=== PATIENT | female | born 1985 | race Caucasian/White ===

== ENCOUNTER 2019-06-20 18:31 | Observation (INO) | payer OTHER ==
[~2019-06-20] VITALS: Ht 160 cm; Wt 97.5 kg
== END 2019-06-20 20:00 | disposition home or self-care (01) ==
LOC: MLD 18:31
PROVIDERS: ADMIT Obstetrics & Gynecology; ATTEND Obstetrics & Gynecology
DX: O26.893 Other specified pregnancy related conditions, third trimester (principal); R10.9 Unspecified abdominal pain; Z3A.28 28 weeks gestation of pregnancy
CPT/HCPCS: 81000; G0378

== ENCOUNTER 2019-08-24 19:36 | Inpatient (IN) | payer OTHER ==
[~2019-08-24] VITALS: Ht 157.5 cm; Wt 99.8 kg
[2019-08-24] MEDS ORDERED: PREN-380 PO (20:27)
[2019-08-24] MEDS ORDERED: OXYTOCIN 20 UNITS in LACTATED RINGERS 1,000 ML IV SCH (20:30)
[2019-08-24] MEDS ORDERED: PROMETHAZINE 25 MG/ML VIAL IVP SCH (21:00)
[2019-08-24] MEDS: LACTATED RINGERS 1,000 ML IV SCH (21:07)
[2019-08-24 21:17] LABS: BASOPHILS % (AUTO) 0.2 % (0.0-2.0); EOSINOPHILS % (AUTO) 0.4 % (0.0-4.0); HEMATOCRIT 34.6 % (36-48); HEMOGLOBIN 11.8 g/dL (12.0-16.0); LYMPHOCYTES # (AUTO) 2.4 K/uL (2.5-16.5); LYMPHOCYTES % (AUTO) 26.2 % (20.5-51.1); MEAN CORPUSCULAR HEMOGLOBIN 31 pg (27-31); MEAN CORPUSCULAR HGB CONC 34 g/dL (33-37); MEAN CORPUSCULAR VOLUME 89.7 fL (80-94); MONOCYTES # (AUTO) 0.7 K/uL (0.8-1.0); MONOCYTES % (AUTO) 7.4 % (1.7-9.3); NEUTROPHILS % (AUTO) 65.8 % (42.2-75.2); PLATELET COUNT (AUTO) 236 K/uL (140-450); RED BLOOD CELL COUNT(AUTO) 3.86 MIL/uL (4.20-5.40); RED CELL DISTRIBUTION WIDTH 12.7 % (11.6-13.7); WHITE BLOOD COUNT (AUTO) 9.1 K/uL (4.8-10.8)
[2019-08-24 21:22] LABS: BILIRUBIN,URINE NEGATIVE (NEGATIVE); BLOOD, URINE NEGATIVE (NEGATIVE); COLOR,URINE YELLOW (YELLOW); LEUKOCYTE ESTERASE ,URINE 3+ (NEGATIVE); NITRITE, URINE POSITIVE (NEGATIVE); PH,URINE 6.5 (5.0-9.0); UGLUCOSE NEGATIVE (NEGATIVE)
[2019-08-24 21:43] LABS: APPEARANCE,URINE BLOODY (CLEAR)
[2019-08-24 21:51] LABS: RBC,URINE 0-5 /HPF (0-5); WBC,URINE 20-60 /HPF (0-5)
[2019-08-24 22:08] LABS: ALBUMIN 2.4 g/dL (3.4-5.0); CARBON DIOXIDE 20.7 mmol/L (21-32); CREATININE 0.5 mg/dL (0.6-1.3); POTASSIUM 3.7 mmol/L (3.5-5.1); TOTAL BILIRUBIN 0.7 mg/dL (0.0-1.0)
[2019-08-24] MEDS ORDERED: cefTRIAXone 1,000 MG in LIDOCAINE MPF 1% 2.1 ML IM ONE (22:20)
[2019-08-24] MEDS ORDERED: cefTRIAXone 1,000 MG VIAL ONE (22:33)
[2019-08-24] MEDS ORDERED: LIDOCAINE 1% 500 MG/50 ML VIAL ONE (22:33)
[2019-08-24] MEDS ORDERED: OXYTOCIN 20 UNITS/LR PREMIX 1,000 ML IV ONE (22:44)
[2019-08-25 02:15] VITALS: BP 124/80
[2019-08-25] MEDS: LACTATED RINGERS 1,000 ML IV SCH (05:59)
--- NOTE | 2019-08-25 07:56 | NUR ---
PATIENT HAS BEEN SCREENED AND CATEGORIZED LOW NUTRITION RISK. PATIENT WILL BE SEEN WITHIN 7 DAYS OF ADMISSION. 08/31/[address]
[2019-08-25] MEDS ORDERED: NALBUPHINE 10 MG/ML AMP ONE ×2 (08:11→11:12)
[2019-08-25] MEDS ORDERED: PROMETHAZINE 25 MG/ML VIAL ONE ×2 (08:11→11:12)
[2019-08-25] MEDS: NALBUPHINE 10 MG/ML AMP IVP PRN ×2 (08:17→11:19)
[2019-08-25] MEDS ORDERED: PROMETHAZINE 25 MG/ML VIAL IVP PRN (11:20)
[2019-08-25] MEDS ORDERED: BUPIVACAINE 0.125%/NS PREMIX 250 ML ONE (11:30)
[2019-08-25] MEDS ORDERED: BUPIVACAINE 0.125%/NS PREMIX 250 ML EPI SCH (11:55)
[2019-08-25] MEDS ORDERED: AMPICILLIN 2,000 MG in NACL 0.9% 100 ML IVP SCH (22:00)
[2019-08-25] MEDS ORDERED: GENTAMICIN PER PHARMACY MC PRN (22:00)
[2019-08-25] MEDS ORDERED: AMPICILLIN 2,000 MG VIAL ONE (22:01)
[2019-08-25] MEDS ORDERED: GENTAMICIN 80 MG/2 ML VIAL ONE (22:13)
[2019-08-25] MEDS ORDERED: AMPICILLIN 2,000 MG in NACL 0.9% 100 ML IV ONE (22:50)
[2019-08-25] MEDS ORDERED: DEXTROSE 5% IV SCH (23:00)
[2019-08-25] MEDS ORDERED: GENTAMICIN IV SCH (23:00)
[2019-08-25] MEDS ORDERED: OXYTOCIN 10 UNITS/ML VIAL IM PRN (23:10)
[2019-08-25] MEDS ORDERED: MEASLES, MUMPS, AND RUBELLA 1 VIAL SQVAC PRN (23:10)
[2019-08-25] MEDS ORDERED: METHYLERGONOVINE 0.2 MG TAB PO PRN (23:10)
[2019-08-25] MEDS ORDERED: BENZOCAINE/MENTHOL 20%-0.5% 60 GM CAN TP PRN (23:10)
[2019-08-25] MEDS ORDERED: METHYLERGONOVINE 0.2 MG/ML AMP IM PRN (23:10)
[2019-08-25] MEDS ORDERED: IBUPROFEN 800 MG TAB PO PRN (23:10)
[2019-08-26] MEDS ORDERED: CLINDAMYCIN 900 MG/6 ML VIAL IV ONE (00:08)
[2019-08-26] MEDS ORDERED: GENTAMICIN PER PHARMACY MC PRN (00:35)
[2019-08-26] MEDS ORDERED: AMPICILLIN 2,000 MG VIAL ONE ×4 (02:58→23:06)
[2019-08-26] MEDS: AMPICILLIN 2,000 MG in NACL 0.9% 100 ML IVP SCH ×3 (04:10→18:53)
[2019-08-26] MEDS ORDERED: CLINDAMYCIN 900 MG in DEXTROSE 5% 100 ML IV SCH (05:00)
[2019-08-26] MEDS ORDERED: GENTAMICIN 80 MG in DEXTROSE 5% 100 ML IV SCH (07:20)
[2019-08-26] MEDS: CLINDAMYCIN 900 MG in DEXTROSE 5% 100 ML IV SCH ×2 (08:01→16:04)
[2019-08-26 08:18] LABS: HEMATOCRIT 31.1 % (36-48); HEMOGLOBIN 10.6 g/dL (12.0-16.0)
[2019-08-26] MEDS: GENTAMICIN 80 MG in DEXTROSE 5% 100 ML IV SCH ×2 (10:01→18:02)
== END 2019-08-27 12:00 | disposition home or self-care (01) | DRG 560 ==
LOC: MLD 19:36 → MFCC 08-26 01:50
PROVIDERS: ADMIT Obstetrics & Gynecology; ATTEND Obstetrics & Gynecology
PROC: 10E0XZZ Delivery of Products of Conception, External Approach (ICD-10-PCS; principal; 2019-08-25)
PROC: 10907ZC Drainage of Amniotic Fluid, Therapeutic from Products of Conception, Via Natural or Artificial Opening (ICD-10-PCS; 2019-08-25)
PROC: 0HQ9XZZ Repair Perineum Skin, External Approach (ICD-10-PCS; 2019-08-25)
PROC: 3E0R3BZ Introduction of Anesthetic Agent into Spinal Canal, Percutaneous Approach (ICD-10-PCS; 2019-08-25)
PROC: 00HU33Z Insertion of Infusion Device into Spinal Canal, Percutaneous Approach (ICD-10-PCS; 2019-08-25)
PROC: 3E0134Z Introduction of Serum, Toxoid and Vaccine into Subcutaneous Tissue, Percutaneous Approach (ICD-10-PCS; 2019-08-25)
DX: O41.03X0 Oligohydramnios, third trimester, not applicable or unspecified (principal); D62 Acute posthemorrhagic anemia; O75.2 Pyrexia during labor, not elsewhere classified; O69.1XX0 Labor and delivery complicated by cord around neck, with compression, not applicable or unspecified; Z37.0 Single live birth; Z3A.38 38 weeks gestation of pregnancy; O70.0 First degree perineal laceration during delivery; Z91.040 Latex allergy status; Z23 Encounter for immunization
CPT/HCPCS: 36415; 51702; 59409; 80053; 81001; 85018; 85025; 86592; 86886; 86900; 86901; 87086; 87186; J0290; J0696; J1580; J2001; J2300; J2550; J2590; J3490; J7060; J7120